=== PATIENT | female | born 1960 | race Caucasian/White ===

== ENCOUNTER 2017-03-18 20:13 | Emergency (ER) | payer BC ==
--- NOTE | 2017-03-18 20:39 | Emergency Department Record ---
History of Present Illness - General Chief Complaint: Cough Stated Complaint: COUGHING YELLOW STUFF Time Seen by Provider: 03/18/17 20:38 Source: Patient Mode of Arrival: Ambulatory Limitations: No limitations - History of Present Illness Initial Comments: 57 yo female presents to ED with a CC of productive cough symptoms for the past 2 days. Patient denies fevers or chills, but patient does report a 3-week history of URI symptoms treated with doxycycline, prednisone (2 rounds), ventolin, and tessalon perles. Patient is in the ED tonight because her cough symptoms are improved but have become more productive in nature. Patient denies wheezing or OVIDIO symptoms. MD Complaint: Cough Onset/Timin -: Week(s) Severity: Moderate Consistency: Intermittent Improves With: Nothing Worsens With: Nothing Associated Symptoms: Denies other symptoms - Related Data Home Medications Medication Instructions Recorded Confirmed Last Taken Atorvastatin Calcium [Lipitor] 20 mg PO QHS 30 Days 03/12/17 03/18/17 03/17/17 Benzonatate [Tessalon Perles] 200 mg PO QHS 7 Days 03/12/17 03/18/17 03/17/17 Ipratropium [place] 1 spray IN DAILY 13 Days 03/12/17 03/18/17 03/18/17 Mometasone Furoate 1 spray IN DAILY 30 Days 03/12/17 03/18/17 03/18/17 Omeprazole [Prilosec] 20 mg PO DAILY 30 Days 03/12/17 03/18/17 03/18/17 Allergies Allergy/AdvReac Type Severity Reaction Status Date / Time No Known Drug Allergies Allergy Unverified 03/18/17 20:24 Travel Screening - Travel/Exposure Within Last 30 Days Have you traveled within the last 30 days?: No - Travel Symptoms Symptom Screening: None Review of Systems Constitutional: Denies: Chills, Fever, Malaise, Night sweats Eyes: Denies: Eye discharge, Eye pain ENT: Reports: Congestion. Denies: Ear pain, Epistaxis Respiratory: Reports: Cough, Wheezes. Denies: Dyspnea, Hemoptysis Cardiovascular: Denies: Chest pain, Dyspnea on exertion Endocrine: Denies: Fatigue, Heat or cold intolerance Gastrointestinal: Denies: Abdominal pain, Nausea, Vomiting Genitourinary: Denies: Incontinence, Retention Musculoskeletal: Denies: Arthralgia, Back pain, Gout, Joint swelling Skin: Denies: Bruising, Change in color Neurological: Denies: Abnormal gait, Confusion, Headache, Seizure Psychiatric: Denies: Anxiety Hematological/Lymphatic: Denies: Anemia, Blood Clots Past Medical History - SOCIAL HISTORY Smoking Status: Never smoker Alcohol Use: None Drug Use: None - RESPIRATORY Hx Respiratory Disorders: No - CARDIOVASCULAR Hx Cardio Disorders: No - NEURO Hx Neuro Disorders: No - GI Hx GI Disorders: Yes Hx Reflux: Yes - Hx Genitourinary Disorders: No - ENDOCRINE Hx Endocrine Disorders: Yes Comment:: pituitary adenoma - MUSCULOSKELETAL Hx Musculoskeletal Disorders: No - PSYCH Hx Psych Problems: No - HEMATOLOGY/ONCOLOGY Hx Hematology/Oncology Disorders: No Family Medical History Any Significant Family History?: No Physical Exam - General General Appearance: Alert, Oriented x3, Cooperative, No acute distress Limitations: No limitations - Head Head exam: Atraumatic, Normocephalic, Normal inspection Head exam detail: negative: Abrasion, Contusion, Haddad's sign, General tenderness, Hematoma, Laceration - Eye Eye exam: Normal appearance. negative: Conjunctival injection, Periorbital swelling, Periorbital tenderness, Scleral icterus - ENT Ear exam: negative: Auricular hematoma, Auricular trauma Nasal Exam: negative: Active bleeding, Discharge, Dried blood, Foreign body Mouth exam: negative: Drooling, Laceration, Muffled voice, Tongue elevation - Neck Neck exam: Normal inspection. negative: Meningismus, Tenderness - Respiratory Respiratory exam: Normal lung sounds bilaterally. negative: Rales, Respiratory distress, Rhonchi, Stridor - Cardiovascular Cardiovascular Exam: Regular rate, Normal rhythm, Normal heart sounds - GI/Abdominal GI/Abdominal exam: Soft. negative: Rebound, Rigid, Tenderness - Rectal Rectal exam: Deferred - exam: Deferred - Extremities Extremities exam: Normal inspection. negative: Calf tenderness, Pedal edema, Tenderness - Back Back exam: Denies: CVA tenderness (R), CVA tenderness (L) - Neurological Neurological exam: Alert, Normal gait, Oriented X3 - Psychiatric Psychiatric exam: Normal affect, Normal mood - Skin Skin exam: Normal color. negative: Abrasion Type of lesion: negative: abrasion Course Vital Signs 03/18/17 20:24 Temperature 98.4 F Pulse Rate [ 71 Pulse Ox Probe] Respiratory 24 Rate Blood Pressure 148/99 [Left Arm] Pulse Ox 98 - Reevaluation(s) Reevaluation #1: 03/18/17 21:26 CXR: Negative. Patient was counseled regarding her radiology results, recommended finishing her Doxycycline as prescribed. Patient appears stable for discharge at this time. Reevaluation #2: 03/18/17 21:46 Radiograph was re-read by the radiologist, no acute process however 16 mm nodular density is seen in the lateral projection. Dr. Macias was contacted directly regarding the patient's CXR results and the need for outpatient CT non- emergently. He will follow-up with the patient to ensure imaging is performed. Disposition Disposition: Discharge Clinical Impression: Bronchitis Disposition: Home, Self-Care Condition: (2) Stable Instructions: Chronic Bronchitis (ED) Additional Instructions: Return to ED if your symptoms worsen or if you have any concerns. Continue your current medications as prescribed. Follow-up with your family doctor in 3-5 days as directed. Forms: Patient Portal Access Time of Disposition: 20:44 Quality - Quality Measures Quality Measures: N/A - Blood Pressure Screening Blood Pressure Classification: Hypertensive Reading Systolic Measurement: 148 Diastolic Measurement: 99 Screening for High Blood Pressure: < First Hypertensive BP, F/U Documented > [ [id number]] First Hypertensive Follow-up Interventions: Referral to alternative/primary care provider.
--- NOTE | 2017-03-19 14:52 | RADIOLOGY REPORT ---
EXAM: CHEST, TWO VIEWS HISTORY: COUGH FOR THREE WEEKS, NONPRODUCTIVE. TECHNIQUE: Two views of the chest were obtained. Comparison: None. FINDINGS: 16 mm nodular density projects over the lower third of the left lung field laterally and probably projects over the heart border on the lateral view. No dense consolidation. The right lung is clear. The cardiac silhouette , diaphragm and osseous structures are unremarkable. IMPRESSION: NODULAR DENSITY PROJECTING OVER THE LATERAL LOWER LEFT LUNG BASE. LUNG NODULES OR PLAQUE IS NOT EXCLUDED. COMPARISON WITH PRIOR IMAGING WOULD BE MOST HELPFUL. IF THERE ARE NO STUDIES DOCUMENTING RN DERMATOLOGY STABILITY COULD CONSIDER CHEST CT. JOB NUMBER: [id number] [id number]
== END 2017-03-18 21:31 | disposition home or self-care (01) ==
LOC: ER 20:13
DX: J20.9 Acute bronchitis, unspecified (principal)
CPT/HCPCS: 71020; 99283